=== PATIENT | male | born 1955 | race Caucasian/White ===

== ENCOUNTER 2017-01-11 19:05 | Emergency (ER) | payer BC ==
[2017-01-11] MEDS ORDERED: Sodium Chloride 0.9% 10 ML Syringe FLUSH PRN ×2 (20:52→21:27)
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
[2017-01-11] MEDS ORDERED: Iopamidol 612 MG/ML 100 ML Bottle IV PRN (21:27)
[2017-01-11] MEDS ORDERED: Sodium Chloride 0.9% 100 ML IV SCH (21:30)
[2017-01-11] MEDS ORDERED: HYDROmorphone 0.5 MG/0.5 ML Syringe IVPUSH ONE (21:51)
[2017-01-11 22:33] VITALS: BP 123/72
--- NOTE | 2017-01-12 08:46 | CR ---
Heart size within normal limits. Right lung is clear. Patchy density left costophrenic angle. May in dicate developing infiltrate. No definitive displaced right rib fracture.
== END 2017-01-11 22:47 | disposition home or self-care (01) ==
LOC: JP.ED 19:05
DX: S27.0XXA Traumatic pneumothorax, initial encounter (principal); S22.31XA Fracture of one rib, right side, initial encounter for closed fracture; W01.0XXA Fall on same level from slipping, tripping and stumbling without subsequent striking against object, initial encounter; Y92.007 Garden or yard of unspecified non-institutional (private) residence as the place of occurrence of the external cause; Y99.8 Other external cause status; I25.810 Atherosclerosis of coronary artery bypass graft(s) without angina pectoris; Z95.1 Presence of aortocoronary bypass graft; Z95.5 Presence of coronary angioplasty implant and graft
CPT/HCPCS: 36415; 71101; 71260; 80048; 85025; J1170; J7030; J7050; Q9967; 96374; 99284-25

== ENCOUNTER 2018-07-22 12:31 | Emergency (ER) | payer BC ==
[2018-07-22] MEDS ORDERED: Aspirin 81 MG Tab.Chew PO ONE (12:38)
[2018-07-22] MEDS ORDERED: Sodium Chloride 0.9% 10 ML Syringe FLUSH PRN (12:38)
[2018-07-22] MEDS ORDERED: Clopidogrel 75 MG Tab PO ONE (12:41)
[2018-07-22] MEDS ORDERED: Metoprolol Tartrate 50 MG Tab PO ONE (12:41)
[2018-07-22] MEDS ORDERED: Heparin Sodium 5,000 Units/ML Vial IVPUSH ONE (12:42)
[2018-07-22] MEDS ORDERED: Heparin Sodium 5,000 Units/ML Vial ONE (12:44)
[2018-07-22] MEDS ORDERED: Heparin Sodium/D5W 25,000 UNITS/500 ML BAG IV SCH (12:45)
[2018-07-22] MEDS ORDERED: Morphine 4 MG/ML Syringe IVPUSH ONE (12:47)
--- NOTE | 2018-07-22 12:47 | EDM.PDOC ---
ED HPI GENERAL MEDICAL PROBLEM - General Chief Complaint: Chest Pain Stated Complaint: CHEST PAIN Time Seen by Provider: 07/22/18 12:35 Source of Information: Reports: Patient History Limitations: Reports: Other (incomplete records) - History of Present Illness INITIAL COMMENTS - FREE TEXT/NARRATIVE: 63 yo male here with 45 min of ant chest pain that came on while hauling wood today. He has known coronary dz with a hx of 5 vessel occlusions tx'd in [place] in . Has had medications prescribed, but does not take any of them. He is a non-smoker. Pain is now down from 04/19 to 8. Onset: Today Onset Date: 07/22/18 Onset Time: 12:00 Duration: Minutes:, Constant Location: Reports: Chest Quality: Reports: Pressure Severity: Severe Improves with: Reports: None Worsens with: Reports: None Context: Reports: Other Associated Symptoms: Reports: Chest Pain Treatments CLINICAL DATA MANAGER: Reports: Other (see below) (none) Chest Pain Score (Numeric/FACES): 8 - Related Data Allergies Allergy/AdvReac Type Severity Reaction Status Date / Time No Known Allergies Allergy Verified 07/22/18 12:44 Home Meds: Home Meds NK [No Known Home Meds] 01/11/17 [History] Past Medical History Cardiovascular History: Reports: CAD Gastrointestinal History: Reports: None Musculoskeletal History: Reports: Other (See Below) Other Musculoskeletal History: broken right collarbone Neurological History: Reports: None Dermatologic History: Reports: None - Past Surgical History Cardiovascular Surgical History: Reports: Coronary Artery Bypass, Coronary Artery Stent GI Surgical History: Reports: Colonoscopy Social & Family History - Caffeine Use Caffeine Use: Reports: Soda ED ROS GENERAL - Review of Systems Review Of Systems: See Below Constitutional: Reports: No Symptoms HEENT: Reports: No Symptoms Respiratory: Reports: No Symptoms Cardiovascular: Reports: Chest Pain Endocrine: Reports: No Symptoms GI/Abdominal: Reports: No Symptoms : Reports: No Symptoms Musculoskeletal: Reports: No Symptoms Skin: Reports: No Symptoms Neurological: Reports: No Symptoms ED EXAM, GENERAL - Physical Exam Exam: See Below Exam Limited By: No Limitations General Appearance: Alert, WD/WN, No Apparent Distress Eye Exam: Bilateral Eye: Normal Inspection Ears: Normal External Exam, Normal Canal, Hearing Grossly Normal, Normal TMs Ear Exam: Bilateral Ear: Auricle Normal, Canal Normal, TM normal Nose: Normal Inspection, Normal Mucosa, No Blood Throat/Mouth: Normal Inspection, Normal Lips, Normal Oropharynx, Normal Voice, No Airway Compromise Head: Atraumatic, Normocephalic Neck: Normal Inspection Respiratory/Chest: No Respiratory Distress, Lungs Clear, Normal Breath Sounds, No Accessory Muscle Use Cardiovascular: Regular Rate, Rhythm, No Edema GI/Abdominal: Normal Bowel Sounds, Soft, Non-Tender, No Distention Extremities: Normal Inspection, Normal Range of Motion, Non-Tender, No Pedal Edema Neurological: Alert, Oriented, CN II-XII Intact, Normal Cognition, No Motor/ Sensory Deficits Psychiatric: Normal Affect, Normal Mood Skin Exam: Warm, Dry, Intact, Normal Color, No Rash EKG INTERPRETATION EKG Date: 07/22/18 Time: 12:35 Rhythm: NSR Rate (Beats/Min): 90 [place]: Normal P-Wave: Present QRS: Normal ST-T: Elevated (inferior leads) QT: Normal EKG Interpretation Comments: Acute inferior NH Course - Vital Signs Text/Narrative:: Discussed with Dr. Carrizales of [facility] @ [facility] Last Recorded V/S: Last Vital Signs Temp Pulse 95 07/22/18 12:48 Resp 20 07/22/18 12:47 BP 147/92 H 07/22/18 12:48 Pulse Ox 97 07/22/18 12:47 - Orders/Labs/Meds Orders: Active Orders 24 hr Category Date Time Status Cardiac Monitoring [RC] .As Directed Care 07/22/18 12:37 Active EKG Documentation Completion [RC] ASDIRECTED Care 07/22/18 12:37 Active BASIC METABOLIC PANEL,BMP [CHEM] Stat Lab 07/22/18 12:40 Received TROPONIN I [CHEM] Stat Lab 07/22/18 12:40 Received UA W/MICROSCOPIC [URIN] Stat Lab 07/22/18 12:38 Ordered Heparin Sodium/D5W [Heparin 25,000 Units in D5W 500 ML] Med 07/22/18 12:45 Active 25,000 units in 500 ml IV TITRATE Sodium Chloride 0.9% [Saline Flush] Med 07/22/18 12:38 Active 10 ml FLUSH ASDIRECTED PRN Saline Lock Insert [OM.PC] Routine Oth 07/22/18 12:38 Ordered EKG 12 Lead [EK] Routine Ther 07/22/18 12:37 Ordered Medication Orders Heparin Sodium/Dextrose (Heparin 25,000 Units In D5w 500 Ml) 25,000 units in 500 mls @ 20 mls/hr IV TITRATE KRIS Sodium Chloride (Saline Flush) 10 ml FLUSH ASDIRECTED PRN PRN Reason: Keep Vein Open Last Admin: 07/22/18 12:48 Dose: 10 ml Labs: Laboratory Tests 07/22/18 Range/Units 12:40 WBC 8.6 (4.5-11.0) K/uL RBC 5.23 (4.30-5.90) M/uL Hgb 16.7 H (12.0-15.0) g/dL Hct 46.8 (40.0-54.0) % MCV 90 (80-98) fL MCH 32 H (27-31) pg MCHC 36 (32-36) % Plt Count 201 (150-400) K/uL Meds: Medications Generic Name Dose Route Start Last Admin Trade Name Cornelius PRN Reason Stop Dose Admin Heparin Sodium/Dextrose 25,000 units in 500 mls @ 20 mls/hr 07/22/18 12:45 Heparin 25,000 Units In D5w 500 Ml IV TITRATE KRIS 1,000 UNITS/HR Sodium Chloride 10 ml 07/22/18 12:38 07/22/18 12:48 Saline Flush FLUSH 10 ml ASDIRECTED PRN Administration Keep Vein Open Discontinued Medications Generic Name Dose Route Start Last Admin Trade Name Cornelius PRN Reason Stop Dose Admin Aspirin 324 mg 07/22/18 12:38 07/22/18 12:42 Aspirin PO 07/22/18 12:39 324 mg ONETIME ONE Administration Clopidogrel Bisulfate 600 mg 07/22/18 12:41 07/22/18 12:47 Plavix PO 07/22/18 12:42 600 mg ONETIME ONE Administration Heparin Sodium (Porcine) 5,000 units 07/22/18 12:42 07/22/18 12:47 Heparin Sodium IVPUSH 07/22/18 12:43 5,000 units ONETIME ONE Administration Heparin Sodium (Porcine) Confirm 07/22/18 12:44 Heparin Sodium Administered 07/22/18 12:45 Dose 5,000 units .ROUTE .STK-MED ONE Metoprolol Tartrate 50 mg 07/22/18 12:41 07/22/18 12:48 Lopressor PO 07/22/18 12:42 50 mg ONETIME ONE Administration Morphine Sulfate 4 mg 07/22/18 12:47 Morphine IVPUSH 07/22/18 12:48 ONETIME ONE Departure - Departure Time of Disposition: 13:00 Disposition: DC/Tfer to Acute Hospital 02 Reason for Transfer *Q: Primary PCI Indicated Condition: Critical Clinical Impression: Acute inferior myocardial infarction, Medical non-compliance Referrals: PCP,None [Primary Care Provider] - Forms: ED Department Discharge - My Orders Last 24 Hours: My Active Orders 07/22/18 12:37 Cardiac Monitoring [RC] .As Directed EKG Documentation Completion [RC] ASDIRECTED EKG 12 Lead [EK] Routine 07/22/18 12:38 UA W/MICROSCOPIC [URIN] Stat Sodium Chloride 0.9% [Saline Flush] 10 ml FLUSH ASDIRECTED PRN Saline Lock Insert [OM.PC] Routine 07/22/18 12:40 BASIC METABOLIC PANEL,BMP [CHEM] Stat TROPONIN I [CHEM] Stat 07/22/18 12:45 Heparin Sodium/D5W [Heparin 25,000 Units in D5W 500 ML] 25,000 units in 500 ml IV TITRATE - Assessment/Plan Last 24 Hours: My Active Orders 07/22/18 12:37 Cardiac Monitoring [RC] .As Directed EKG Documentation Completion [RC] ASDIRECTED EKG 12 Lead [EK] Routine 07/22/18 12:38 UA W/MICROSCOPIC [URIN] Stat Sodium Chloride 0.9% [Saline Flush] 10 ml FLUSH ASDIRECTED PRN Saline Lock Insert [OM.PC] Routine 07/22/18 12:40 BASIC METABOLIC PANEL,BMP [CHEM] Stat TROPONIN I [CHEM] Stat 07/22/18 12:45 Heparin Sodium/D5W [Heparin 25,000 Units in D5W 500 ML] 25,000 units in 500 ml IV TITRATE
[2018-07-22 12:58] VITALS: BP 134/87
== END 2018-07-22 13:16 ==
LOC: JP.ED 12:31
DX: I21.9 Acute myocardial infarction, unspecified (principal); Z91.14 Patient's other noncompliance with medication regimen
CPT/HCPCS: 36415; 80048; 84484; 85027; 93005; 96374; 96375; 99285; A9270; J1644; J2270

== ENCOUNTER 2020-02-26 17:08 | Emergency (ER) | payer BC, MEDICARE ==
--- NOTE | 2020-02-26 17:16 | EDM.PDOC ---
<Logan Jackman - Last Filed: 02/26/20 18:13> ED HPI GENERAL MEDICAL PROBLEM - General Chief Complaint: Chest Pain Stated Complaint: CHEST PAINS Time Seen by Provider: 02/26/20 17:35 Source of Information: Reports: Patient, Old Records, Provider History Limitations: Reports: No Limitations - History of Present Illness INITIAL COMMENTS - FREE TEXT/NARRATIVE: 64 yo male was sent from the clinic to the ER for a CO rule out. He was seen and evaluated in the clinic and they were not able to get a stat trop so sent him here for this test. Jovanny has a known cardiac hx and has [facility] corporate safety [facility] that he is followed by. Sx's lately sound like heart burn and are relieved with antacids. Has been more SOB for the past mos with e xertion. EKG normal in the clinic. Not having sx's currently. Has not missed any of his regular meds, BP running higher than normal lately. Onset: Gradual Duration: Week(s): (about 4), Waxing/Waning Location: Reports: Chest Quality: Reports: Burning Severity: Mild Improves with: Reports: Medication (antacids) Worsens with: Reports: Other (? exertion) Context: Reports: Other (see HPI) Associated Symptoms: Reports: Chest Pain, Shortness of Breath. Denies: Diaphoresis, Syncope Treatments ROAD COMMISSIONER: Reports: Other (see below) (none today) Chest Pain Score (Numeric/FACES): 1 - Related Data Allergies Allergy/AdvReac Type Severity Reaction Status Date / Time No Known Allergies Allergy Verified 02/26/20 17:36 Home Meds: Home Meds Amoxicillin/Potassium Clav [Augmentin 875-125 Tablet] 1 each PO ASDIRECTED 02/26/20 [History] Aspirin [Halfprin] 81 mg PO DAILY 02/26/20 [History] Clopidogrel Bisulfate [Clopidogrel] 75 mg PO DAILY 02/26/20 [History] Gabapentin [Neurontin] 200 mg PO BEDTIME 02/26/20 [History] Tamsulosin [Tamsulosin 24 Hr] 0.4 mg PO DAILY 02/26/20 [History] Past Medical History Cardiovascular History: Reports: CAD Gastrointestinal History: Reports: None Musculoskeletal History: Reports: Other (See Below) Other Musculoskeletal History: broken right collarbone Neurological History: Reports: None Dermatologic History: Reports: None - Past Surgical History Cardiovascular Surgical History: Reports: Coronary Artery Bypass, Coronary Artery Stent GI Surgical History: Reports: Colonoscopy Social & Family History - Caffeine Use Caffeine Use: Reports: Soda ED ROS GENERAL - Review of Systems Review Of Systems: See Below Constitutional: Reports: No Symptoms HEENT: Reports: No Symptoms Respiratory: Reports: Shortness of Breath (with exertion). Denies: Pleuritic Chest Pain, Cough, Sputum, Hemoptysis Cardiovascular: Reports: Chest Pain (like heart burn with exertion), Dyspnea on Exertion. Denies: Edema, Palpitations, Syncope Endocrine: Reports: No Symptoms GI/Abdominal: Reports: No Symptoms Musculoskeletal: Reports: No Symptoms Skin: Reports: No Symptoms Neurological: Reports: No Symptoms ED EXAM, GENERAL - Physical Exam Exam: See Below Exam Limited By: No Limitations General Appearance: Alert, WD/WN, No Apparent Distress Eye Exam: Bilateral Eye: Normal Inspection Ears: Normal External Exam, Normal Canal, Hearing Grossly Normal Ear Exam: Bilateral Ear: Auricle Normal, Canal Normal Nose: Normal Inspection, Normal Mucosa, No Blood Throat/Mouth: Normal Inspection, Normal Lips, Normal Oropharynx, Normal Voice, No Airway Compromise Head: Atraumatic, Normocephalic Neck: Normal Inspection Respiratory/Chest: No Respiratory Distress, Lungs Clear, Normal Breath Sounds, No Accessory Muscle Use, Chest Non-Tender Cardiovascular: Regular Rate, Rhythm, No Edema GI/Abdominal: Normal Bowel Sounds, Soft, Non-Tender, No Distention Back Exam: Normal Inspection Extremities: Normal Inspection, Normal Range of Motion, Non-Tender, No Pedal Edema. No: An's Sign Neurological: Alert, Oriented, CN II-XII Intact, Normal Cognition, No Motor/Sensory Deficits Psychiatric: Normal Affect, Normal Mood Skin Exam: Warm, Dry, Intact, Normal Color, No Rash EKG INTERPRETATION EKG Date: 02/26/20 Time: 16:40 Rhythm: NSR Rate (Beats/Min): 99 [place]: Normal P-Wave: Present QRS: RBBB ST-T: Normal QT: Normal Comparison: NA - No Prior EKG EKG Interpretation Comments: ? old inferior CO. Course - Radiology Interpretation Free Text/Narrative:: CTA chest- CT Results Date: 02/26/20 Departure - Departure Disposition: Home, Self-Care 01 Clinical Impression: Shortness of breath Pneumonia Qualifiers: Pneumonia type: due to unspecified organism Laterality: left Lung location: unspecified part of lung Qualified Code(s): J18.9 - Pneumonia, unspecified organism Instructions: Shortness of Breath, Adult, [id number] Referrals: Jo Ann Cruz PA [Primary Care Provider] - Forms: ED Department Discharge Care Plan Goals: Take antibiotic as prescribed, recheck to discuss CT report as soon as able <Jose Madera - Last Filed: 02/26/20 21:23> Course - Vital Signs Last Recorded V/S: Last Vital Signs Temp 97.7 F 02/26/20 17:35 Pulse 94 02/26/20 18:54 Resp 17 02/26/20 18:54 BP 164/101 H 02/26/20 18:54 Pulse Ox 95 02/26/20 18:54 - Orders/Labs/Meds Labs: Laboratory Tests 02/26/20 02/26/20 02/26/20 Range/Units 17:24 17:24 17:27 D-Dimer, Quantitative 471 H (0.0-400.0) ng/mL Creatinine 1.2 (0.8-1.3) mg/dL Est Cr Clr Drug Dosing 71.35 mL/min Estimated GFR (MDRD) > 60 (>60) Troponin I 0.021 (0.000-0.056) ng/mL Meds: Medications Discontinued Medications Generic Name Dose Route Start Last Admin Trade Name Freq PRN Reason Stop Dose Admin Sodium Chloride 100 mls @ 4 mls/sec 02/26/20 18:30 02/26/20 18:49 Normal Saline IV 4 mls/sec ASDIRECTED KRIS Administration Iopamidol 100 ml 02/26/20 18:30 02/26/20 18:49 Isovue-370 (76%) IV 100 ml . DIRECTED KRIS Administration Sodium Chloride 10 ml 02/26/20 18:21 02/26/20 18:49 Saline Flush FLUSH 10 ml ASDIRECTED PRN Administration Keep Vein Open - Re-Assessments/Exams Free Text/Narrative Re-Assessment/Exam: 02/26/20 21:01 IMPRESSION: 1. No acute pulmonary embolism. 2. New mediastinal and bilateral hilar adenopathy. Differential considerations include lymphoma, leukemia, metastatic disease, fungal infection or sarcoidosis. 3. Small infiltrate within the lingula. 4. Multiple new pulmonary nodules with differential considerations including pulmonary parenchymal metastases versus granulomata. 5. Postsurgical changes of prior sternotomy and CABG. Above findings discussed with patient, will recheck with primary 02/26/20 21:23 Patient placed on 5 day course of Zithromax Departure - Departure Time of Disposition: 21:06 Sepsis Event Note (ED) - Focused Exam Vital Signs: Vital Signs Temp Pulse Resp BP Pulse Ox 02/26/20 18:54 94 17 164/101 H 95 02/26/20 18:22 92 21 H 130/81 93 L 02/26/20 17:53 95 18 130/88 95 02/26/20 17:35 97.7 F 108 H 18 175/107 H 96 02/26/20 17:28 97.7 F 108 H 18 175/107 H 96 02/26/20 17:22 102 H 14 145/101 H 96
[2020-02-26] MEDS ORDERED: Sodium Chloride 0.9% 10 ML Syringe FLUSH PRN (18:21)
[2020-02-26] MEDS ORDERED: Iopamidol 755 Mg/ML 100 ML Bottle IV SCH (18:30)
[2020-02-26] MEDS ORDERED: Sodium Chloride 0.9% 100 ML IV SCH (18:30)
[2020-02-26 19:19] VITALS: BP 164/101; PULSE 94
--- NOTE | 2020-02-26 20:15 | CRLCT ---
HISTORY: Dyspnea on exertion. Elevated D-dimer. TECHNIQUE: Intravenous contrast enhanced CT of the chest. 100 mL of Isovue-370 intravenous contrast administered. COMPARISON: 01/11/2017. FINDINGS: Patient is status post sternotomy and CABG. Extensive coronary arteriosclerotic vascular calcifications. No significant pericardial effusion. No acute pulmonary embolism. There is new mediastinal and bilateral hilar adenopathy. Differential considerations include lymphoma, leukemia, metastatic disease, sarcoidosis or fungal infection. - There is a small infiltrate within the lingula as seen on image #78 of series 5. Increased ground-glass opacity within the more dependent portions of the lungs may relate to atelectasis or edema. 9 mm lingular pulmonary nodule is seen on image #81 of series 5, new from the prior CT. 10 mm nodule along the left major fissure on image #64 series 5 has enlarged from prior CT where it measured approximately 8 mm. 5 mm right upper lobe pulmonary nodule adjacent to a vessel on image #33 of series 5 is new. 6 mm right upper lobe pulmonary nodule image #65 is new. No pneumothorax or pleural effusion. - Calcified splenic granulomata. - Degenerative changes of the thoracic spine. IMPRESSION: 1. No acute pulmonary embolism. 2. New mediastinal and bilateral hilar adenopathy. Differential considerations include lymphoma, leukemia, metastatic disease, fungal infection or sarcoidosis. 3. Small infiltrate within the lingula. 4. Multiple new pulmonary nodules with differential considerations including pulmonary parenchymal metastases versus granulomata. 5. Postsurgical changes of prior sternotomy and CABG. Dictated by Berry Fung MD @ 02/26/2020 8:14:39 PM Please note that all CT scans at this facility use dose modulation, iterative reconstruction, and/or weight-based dosing when appropriate to reduce radiation dose to as low as reasonably achievable. Dictated by: Berry Fung MD @ 02/26/2020 20:14:45 (Electronically Signed)
== END 2020-02-26 21:06 | disposition home or self-care (01) ==
LOC: JP.ED 17:08
DX: J18.9 Pneumonia, unspecified organism (principal); I25.10 Atherosclerotic heart disease of native coronary artery without angina pectoris; Z95.5 Presence of coronary angioplasty implant and graft; Z79.82 Long term (current) use of aspirin; Z79.02 Long term (current) use of antithrombotics/antiplatelets
CPT/HCPCS: 36415; 71275; 82565; 84484; 85379; 99285; J7050; Q9967; 99283

== ENCOUNTER 2023-05-24 17:43 | Emergency (ER) | payer MEDICARE ==
[2023-05-24 18:31] VITALS: BP 137/78; PULSE 98
== END 2023-05-24 18:38 | disposition left against medical advice (07) ==
LOC: JP.ED 17:43
DX: Z53.21 Procedure and treatment not carried out due to patient leaving prior to being seen by health care provider (principal)